=== PATIENT | female | born 1985 ===

== ENCOUNTER 2020-12-20 09:07 | Day surgery (SDC) | payer SELFPAY ==
[2020-12-20] MEDS ORDERED: Acetaminophen 500 MG TAB ONE (09:45)
[2020-12-20] MEDS ORDERED: diphenhydrAMINE 50 MG/ML VIAL ONE (09:46)
[2020-12-20] MEDS ORDERED: BAMLANIVIMAB 700 MG in Sodium Chloride 0.9% 250 ML 250 ML IVPB SCH (10:00)
[2020-12-20] MEDS ORDERED: diphenhydrAMINE 50 MG/ML VIAL IVP SCH (10:00)
[2020-12-20] MEDS ORDERED: Acetaminophen 500 MG TAB PO SCH (10:00)
== END 2020-12-20 12:13 | disposition home or self-care (01) ==
LOC: CSHSDC/OP 09:07
PROVIDERS: ATTEND Emergency Medicine Emergency Medical Services
DX: Z23 Encounter for immunization (principal); U07.1 COVID-19
CPT/HCPCS: J1200